=== PATIENT | female | born 1945 | race Caucasian/White ===

== ENCOUNTER 2016-09-21 14:47 | Emergency (ER) | payer MEDICARE ==
[2015-02-10 08:31] VITALS: BMI 35.0
[~2016-09-21 14:47] MED LIST: BAYER ASPIRIN325 MG; MOBIC7.5 MG PO; NORVASC5 MG PO; PLAVIX75 MG PO; PRAVACHOL40 MG PO; TENORMIN50 MG PO; TRIGLIDE160 MG PO; ZOLOFT100 MG PO
[2016-09-21 16:18] LABS: BASOPHILS 0.4 % (0-2); EOSINOPHILS 1.4 % (0-7); HEMATOCRIT 40.7 % (36.0-48.0); IMMATURE GRANULOCYTES 0.4 % (0-5); LYMPHOCYTES 28.2 % (15-50); MCH 31.9 pg (26.0-34.0); MCHC 34.4 g/dL (31.0-37.0); MCV 92.7 fL (80.0-100.0); MEAN PLATELET VOLUME 10.3 fL (7.4-10.4); NEUTROPHILS 59.6 % (40-80); PLATELET COUNT 187 10x3/uL (130-400); RBC 4.39 10x6/uL (4.00-5.40); RDW 13.1 % (11.5-14.5); WBC 7.9 10x3/uL (4.8-10.8)
[2016-09-21 16:33] LABS: ALKALINE PHOSPHATASE 73 U/L (46-116); ALT (SGPT) 67 U/L (10-68); BILIRUBIN - TOTAL 0.38 mg/dL (0.2-1.3); CALC OSMOLALITY 277 mosm/kg (275-300); CALCIUM 8.8 mg/dL (8.5-10.1); CARBON DIOXIDE 27.2 mmol/L (21.0-32.0); CHLORIDE - SERUM 101 mmol/L (98-107); GLUCOSE 125 mg/dL (74-106); POTASSIUM - SERUM 3.8 mmol/L (3.5-5.1); PROTEIN - SERUM 7.3 g/dL (6.4-8.2); SODIUM 137 mmol/L (136-145); UREA NITROGEN 21 mg/dL (7-18); eGFR NON AFRICAN AMERICAN 58 mL/min (90-120)
[2016-09-21 16:36] LABS: TROPONIN-I < 0.017 ng/mL (0.000-0.060)
== END 2016-09-21 18:21 | disposition home or self-care (01) ==
LOC: D.ER 14:47
PROVIDERS: Physician Assistant
DX: R06.02 Shortness of breath (principal); R53.83 Other fatigue; I25.10 Atherosclerotic heart disease of native coronary artery without angina pectoris; I10 Essential (primary) hypertension; J44.9 Chronic obstructive pulmonary disease, unspecified

== ENCOUNTER → 2016-10-07 08:06 | Outpatient (CLI) | payer MEDICARE ==
[~2016-10-07] VITALS: Ht 172.7 cm; Wt 100.0 kg
--- NOTE | ~2016-10-07 | OP ---
PATIENT NAME: MIK ASHTON MEDICAL RECORD: [id number] :[birth year] LOCATION:D.[facility] ADMISSION DATE: SURGEON: IVETH MCDUFFIE MD DATE OF OPERATION: 10/07/2016 PROCEDURES: 1. PTCA stent LAD. 2. Left heart catheterization. 3. Selective coronary angiography. 4. Left ventriculogram. INDICATION: Angina and coronary artery disease. PROCEDURE IN DETAIL: After informed consent was obtained and after detailed explanation of risks, benefits as well as alternative therapies, the patient elected to proceed with angiogram and angioplasty. The right radial area was prepped and draped in normal sterile fashion. The right radial artery was cannulated via modified Seldinger technique with placement of 6-Tanzanian sheath. All catheters exchanged through this sheath. FINDINGS: Left ventriculogram was performed in standard 30-degree VELASQUEZ view, reveals good cardiac wall motion throughout all segments. Overall ejection fraction is 60%. SELECTIVE CORONARY ANGIOGRAPHY: 1. Left main showed no significant angiographic disease. 2. Left anterior descending has previously placed stent. This is widely patent; however, there is a new 80% stenosis in the mid vessel. 3. The left circumflex shows mild irregularities, but no flow-limiting stenosis. 4. The right coronary has previously placed stents, these are widely patent with no significant restenosis. No disease elsewise throughout the RCA or its branches. PTCA STENT OF THE LAD: The stent used was a 2.5 x 11 mm BioFreedom stent. This was an 8-mm lesion and a 2.5 vessel, FRANK 3 flow before and after the intervention. The intervention resulted in 0% residual stenosis. OVERALL IMPRESSION: Successful percutaneous transluminal coronary angioplasty stent of the left anterior descending going from 80% initial stenosis to 0% residual. TRANSINT:[id number] Voice Confirmation ID: [id number] DOCUMENT ID: [id number] IVETH MCDUFFIE MD CC: [id number] DICTATION DATE: 10/07/16 1128 COMMISSIONING AGENT: 10/07/16 133[address] [place] [address]
--- NOTE | ~2016-10-07 | HEMODYNAMI ---
PATIENT:MIK ASHTON MEDICAL RECORD: [id number] : 49 LOCATION:[facility] ADMISSION DATE: 10/07/16 Generatedon:10/07/201611:27 Patient name: MIK ASHTON Patient #: [id number] SSN: : 1945 Date of study: 10/07/2016 Page: Of Hemodynamic Procedure Report Patient Data Patient Demographics Procedure consent was obtained First Name: MIK Gender: Female Last Name: POLI : 1945 [facility] Initial: ES Age: 70 year(s) Patient #: [id number] Race: Additional ID: [id number] Contact details Address: [address] [place] [address] State: [place] City: [place] Zip code: [address] Past Medical History Allergies: No known allergies Admission Admission Data Admission Date: 10/07/2016 Admission Time: 8:06 Admit Source: Other Height (in.): 67.72 BSA: 2.13 (m2) Height (cm.): 172 BMI: 34.04 (kg/m2) Weight (lbs.): 222 Weight (kg.): 100.7 Lab Results Lab Result Date: 10/07/2016 Lab Result Time: 0:00 Biochemistry Name Units Result Min Max BUN mg/dl 16 --(---*)-- 7 18 CK-MB ng/ml 0.9 --(*---)-- 0 3.6 Creatinine mg/dl 1.1 --(--*-)-- 0.6 1.3 Creatinine l 116 --(-*--)-- 21 215 Kinase CBC Name Units Result Min Max Hemoglobin g/dl 13.8 --(*---)-- 13.5 17.5 WBC 10^3/l 5.3 --(*---)-- 4.8 10.8 Procedure Procedure Types Cath Procedure Diagnostic Procedure [facility] w/Coronaries PCI Procedure Coronary Stent Initial Miscellaneous Procedures Moderate Sedation up to 15 minutes Procedure Description Procedure Date Procedure Date: 10/07/2016 Procedure Start Time: 11:05 Procedure End Time: 11:23 Procedure Staff Name Function Bong Greenwood MD Performing Physician Burak Mcghee RT Scrub John Rowland RN Nurse Giovanni Steiner RN Sales Support Rep Geeta Traore RT Monitor Procedure Data Cath Procedure Fluoroscopy Diagnostic fluoroscopy Total fluoroscopy Time: 5.3 time: 5.3 min min Diagnostic fluoroscopy Total fluoroscopy dose: 761 dose: 761 mGy mGy Contrast Material Contrast Material Type Amount (ml) Isovue 300 101 Entry Location Entry Primary Successful Side Size Upsize Upsize Entry Closure Fan ccessful Closure Location (Fr) 1 (Fr) 2 (Fr) Remarks Device Remarks Radial Right 6 Fr Mechanical TR band artery Short Compression Estimated blood loss: 10 ml Diagnostic catheters Device Type Used For End Catheter Placement Diagnostic Terumo 5Fr Procedure Jasper 110cm catheter Procedure Complications No complications Procedure Medications Medication Administration Route Dosage Oxygen NC 2 l/min Lidocaine 2% added to field 20 Heparin Flush Bag added to field 2 bags (1000units/500ml NS) 0.9% NaCl I.V. 100 ml/hr Versed I.V. 1 mg Fentanyl I.V. 50 mcg Versed I.V. 1 mg Fentanyl I.V. 50 mcg Radial Cocktail I.A. 1 syringe (Verapomil 2mg/Nitro 400mcg/Heparin 1500units) Versed I.V. 1 mg Fentanyl I.V. 50 mcg Heparin Bolus I.V. 4000 units Hemodynamics Rest BSA: 2.13 (m2) HGB: 13.8 (g/dl) O2 Consumption: Estimated: 191.91 (ml/min) O2 Co nsumption indexed: Estimated:90.1 (ml/min/m) Heart Rate: 63 (bpm) Snapshots Pre Cath Intra NCS Post Cath Vital Signs Time Heart Resp SPO2 etCO2 [id number] NIBP (mmHg) Rhythm Pain Sedation Rate (ipm) (%) (mmHg) (mmHg) Status Level (bpm) 10:45:42 61 16 98 0 0 No Cuff NSR 0 (11) 10(A) , No pain 10:47:29 62 15 97 0 0 132/71(105) NSR 0 (11) 10(A) , No pain 10:56:52 61 17 96 0 0 119/67(97) NSR 0 (11) 10(A) , No pain 11:01:08 60 16 96 0 0 122/66(100) NSR 0 (11) 10(A) , No pain 11:05:24 60 15 96 0 0 115/67(85) NSR 0 (11) 9(A) , No pain 11:09:38 61 16 95 0 0 98/49(69) NSR 0 (11) 9(A) , No pain 11:13:50 60 17 95 0 0 98/52(86) NSR 0 (11) 9(A) , No pain 11:18:02 62 16 96 0 0 97/54(75) NSR 0 (11) 9(A) , No pain 11:22:12 61 16 95 0 0 104/57(81) NSR 0 (11) 10(A) , No pain 11:26:26 61 16 95 0 0 110/56(92) NSR 0 (11) 10(A) , No pain Medications Time Medication Route Dose Verified Delivered Reason Note s Effectiveness by by 10:45:21 Oxygen NC 2 l/min Bong Buffie used for Timo Rowland RN procedure 10:45:30 Lidocaine 2% added 20ml Bong Bong for local to vial Timo Greenwood MD anesthetic field 10:45:37 Heparin Flush added 2 bags Bong Woody used for Bag to Timo Greenwood MD procedure (1000units/500ml field NS) 10:45:47 0.9% NaCl I.V. 100 Bongloc Saldanaie Per physician ml/hr Timo Rowland RN 11:00:33 Versed I.V. 1 mg Bong Buffie for sedation Timo Rowland RN 11:00:38 Fentanyl I.V. 50 mcg Bong Buffie for sedation Timo Rowland RN 11:06:00 Versed I.V. 1 mg Bong Buffie for sedation Timo Rowland RN 11:06:04 Fentanyl I.V. 50 mcg Bong Buffie for sedation Timo Rowland RN 11:06:13 Radial Cocktail I.A. 1 Bong Bong for (Verapomil syringe Timo Greenwood MD vasodilation 2mg/Nitro 400mcg/Heparin 1500units) 11:10:31 Versed I.V. 1 mg Bong Buffie for sedation Timo Rowland RN 11:10:34 Fentanyl I.V. 50 mcg Bong Lopez for sedation Timo Rowland RN 11:12:56 Heparin Bolus I.V. 4000 Bong Lopez for veri fied units Timo Rowland RN anticoagulation with dr greenwood Procedure Log Time Note 10:29:38 Patient Height : 67.72 cm 10:29:42 Patient Weight : 222 kg 10:30:01 Diagnostic Cath Status : Elective 10:30:39 Admit Source: Other 10:30:42 Giovanni Steiner RN sent for patient. Start room use. 10:30:44 Time tracking: Regular hours 10:30:49 Plan of Care:Hemodynamics will remain stable., Cardiac rhythm will remain stable., Comfort level will be maintained., Respiratory function will remain adequate., Patient/ family verbilizes understanding of procedure., Procedure tolerated without complication., Recovers from procedure without complications.. 10:32:25 Patient received from Outpatients to [facility] 1 Alert and oriented. Tansferred to table in Supine position. 10:32:29 Warm blankets applied, and danis hugger turned on for patient comfort. 10:32:30 Correct patient and procedure confirmed by team. 10:32:32 Signed procedure consent form obtained from patient. 10:32:49 H&P Date Dictated: 09/11/2016 Within 30 days and on chart., H&P Addendum completed by physician on day of procedure. (MUST COMPLETE FOR ALL OUTPATIENTS). 10:32:52 Pre-procedure instructions explained to patient. 10:32:58 Pre-op teaching completed and patient verbalized understanding. 10:33:00 Family in waiting room. 10:33:02 Patient NPO since Midnight. 10:33:11 Is patient on blood thinner?Yes 10:33:17 ACC The patient was administered the following blood thiners within the last 24 hours: ACCPlavix 10:33:26 Snore? Yes 10:33:28 Sleep apnea? No 10:33:34 Airway obstruction? Yes COPD 10:33:40 Dentures? No ? 10:33:45 Patient pain scale 0/10 ?. 10:33:59 IV patent on arrival in right forearm with 0.9% NaCl at O. 10:34:07 Lab results completed and on chart. 10:34:13 Right Radial & Right Groin area was prepped with chlora-prep and draped in sterile fashion 10:34:15 Alarms reviewed by R. N. 10:34:16 Sharps counted by scrub and verified by R.N. 10:44:44 Physician paged 10:44:50 ECG and BP/O2 sat monitors applied to patient. 10:44:51 Vital chart was started 10:44:52 Baseline sample Acquired. 10:44:57 Full Disclosure recording started 10:45:00 Baseline sample Acquired. 10:45:21 Oxygen 2 l/min NC was administered by John Rowland RN; used for procedure; 10:45:30 Lidocaine 2% 20ml vial added to field was administered by Bong Greenwood MD; for local anesthetic; 10:45:37 Heparin Flush Bag (1000units/500ml NS) 2 bags added to field was administered by Bong Greenwood MD; used for procedure; 10:45:47 0.9% NaCl 100 ml/hr I.V. was administered by John Rowland RN; Per physician; 10:46:17 Vital chart was stopped 10:55:46 Vital chart was started 11:00:17 Physician arrived 11:00:18 --------ALL STOP TIME OUT------ 11:00:19 Final Timeout: patient, procedure, and site verified with staff and physician. All members of the team are in agreement. 11:00:21 Right Radial & Right Groin site verified by team. 11:00:26 Sedation plan: IV Moderate Sedation Versed, Fentanyl 11:00:32 Physical assessment completed. ASA score P 2 - A patient with mild systemic disease as per Bong Greenwood MD. 11:00:33 Versed 1 mg I.V. was administered by John Rowland RN; for sedation; 11:00:38 Fentanyl 50 mcg I.V. was administered by John Rowland RN; for sedation; 11:00:38 Use device set Radial Dx 11:00:39 Acist Syringe opened to sterile field. 11:00:40 Medline Cath Pack opened to sterile field. 11:00:40 Bag Decanter opened to sterile field. 11:00:40 Terumo 6Fr Slender Glidesheath opened to sterile field. 11:00:41 St Prasanth 260cm J .035 wire opened to sterile field. 11:00:41 Acist Hand Control opened to sterile field. 11:00:42 Acist Manifold opened to sterile field. 11:00:42 Tegaderm 4 x 4 opened to sterile field. 11:00:43 MBrace Wrist Support opened to sterile field. 11:00:52 Zero performed for pressure channel P1 11:04:27 Procedure started. 11:05:12 Local anesthetic to right radial artery with Lidocaine 2% by Bong Greenwood MD.INITIAL ACCESS ONLY 11:05:25 A 6 Fr Short sheath was inserted into the Right Radial artery 11:06:00 Versed 1 mg I.V. was administered by John Rowland RN; for sedation; 11:06:04 Fentanyl 50 mcg I.V. was administered by John Rowland RN; for sedation; 11:06:13 Radial Cocktail (Verapomil 2mg/Nitro 400mcg/Heparin 1500units) 1 syringe I.A. was administered by Bong Greenwood MD; for vasodilation; 11:06:38 A Diagnostic [employer] 5Fr Jasper 110cm catheter was advanced over the wire and used for Procedure. 11:06:47 LV angiography performed. 11:09:48 RCA angiography performed. 11:09:51 Catheter removed. 11:10:31 Versed 1 mg I.V. was administered by John Rowland RN; for sedation; 11:10:34 Fentanyl 50 mcg I.V. was administered by John Rowland RN; for sedation; 11:10:40 Cordis 6FR XBLAD 3.5 guide catheter opened to sterile field. 11:11:11 LCA angiography performed. 11:12:20 [employer] BasixCompak Inflation Kit opened to sterile field. 11:12:20 Ramey Whisper J 300cm 0.014 guide wire opened to sterile field. 11:12:56 Heparin Bolus 4000 units I.V. was administered by John Rowland RN; for anticoagulation; verified with dr greenwood 11:13:09 6 Fr xblad3.53 guide catheter was inserted over the wire 11:13:11 Wire advanced across lesion. 11:15:19 Inflation Number: 1 A Biofreedom 2.5 x 11 stent (No Cost Implant) was prepped and advanced across the Mid LAD. The stent was deployed at 13 ALAINA for 0:10 (min:sec). 11:15:36 Inflation number: 2 The stent balloon was then re-inflated across the Mid LAD to 19 ALAINA for 0:10 (min:sec). 11:17:21 Terumo TR Band Standard opened to sterile field. 11:17:52 Inflation number: 3 A Euphora 2.5 x 12 Balloon was prepped and advanced across the Mid LAD, then inflated to 13 ALAINA for 0:10 (min:sec). 11:20:23 Wire removed. 11:20:24 Guide catheter removed. 11:20:48 Sheath removed intact; hemostasis achieved with Mechanical Compression to the Right Radial artery. 11:20:51 Procedure ended.(Physican Out) 11::34 Fluoroscopy time 05.30 minutes. 11::40 Fluoroscopy dose: 761 mGy 11::40 Flurop Dose total: 761 11::44 Contrast amount:Isovue 300 101ml. 11:21:47 Sharps counted by scrub and verified by R.N. 11:21:56 TR band inflated with 10cc of air. 11:22:01 Insertion/operative site no bleeding no hematoma. 11:22:11 Post Procedure Pulses reassessed and unchanged 11:22:21 Post-procedure physical assessment completed. ASA score P 2 - A patient with mild systemic disease as per Bong Greenwood MD. 11:22:26 Post procedure rhythm: unchanged. 11:22:30 Estimated blood loss: 10 ml 11:22:32 Post procedure instruction explained to patient.Patient verbalizes understanding. 11::47 Procedure and supply charges have been captured, reviewed, submitted and are correct. 11:23:16 Procedure Complication : No complications 11:23:26 See physician's report for complete and final results. 11::44 Report given to Pre/Post Procedure Room. 11:23:48 Patient transfered to Pre/Post Procedure Room with Stretcher. 11::52 Procedure ended. 11::52 Full Disclosure recording stopped 11::55 End room use (Document Last) 11:24:14 ACC-PCI Only Patient was given prescriptions, or instructed by Bong Greenwood MD to start/continue the following medications upon discharge: Plavix 11::47 Lab Result : Creatinine 1.1 mg/dl 11::47 Lab Result : BUN 16 mg/dl 11:26:47 Lab Result : CK-MB 0.9 ng/ml 11:26:47 Lab Result : Creatinine Kinase 116 l 11:26:47 Lab Result : Hemoglobin 13.8 g/dl 11:26:47 Lab Result : WBC 5.3 10^3/l 11:27:50 Vital chart was stopped Intervention Summary Intervention Notes Time ActionType Lesion and Equipment Action# Pressure Duration Attributes Used 11:15:19 Place stent Mid LAD Biofreedom 1 13 00:10 2.5 x 11 stent (No Cost Implant) 11:15:36 Reinflate Mid LAD Biofreedom 2 19 00:10 stent 2.5 x 11 balloon stent (No Cost Implant) 11:17:52 Inflate Mid LAD Euphora 3 13 00:10 balloon 2.5 x 12 Balloon Device Usage Item Name Manufacture Quantity Catalog Hospital Part Current Minimal Lot# / Number Charge Number Stock Stock Serial# Code Acist Acist 1 00171 616134 397843 828187 20 Syringe Medical Systems Inc Medline Cardinal 1 [id number] 713209 97631 518586 5 Cath Pack Health Bag Microtek 1 2002S 053003 31854 514689 5 Decanter Medical Inc. Terumo 6Fr Terumo 1 [id number] 178557 157768 340728 [address] Pr[address] St Prasanth 1 151988 332665 675059 436337 30 260cm J .035 wire Acist Hand Acist 1 60605 204571 687959 848031 5 Control Medical Systems Inc Acist Acist 1 82568 103319 223685 722782 5 Manifold Medical Systems Inc Tegaderm 4 3M 1 1626W 927014 731793 143985 5 x 4 MBrace Advanced 1 140-0250-00 940060 78976 807656 5 Wrist Vascular Support Dynamics Diagnostic Terumo 1 40-6615 130635 119309 982339 5 Terumo 5Fr Jasper 110cm catheter Cordis 6FR Cardinal 1 [id number] 890563 167411 808506 10 XBLAD 3.5 Health guide catheter Merit Merit 1 [id number] 935584 711230 613888 15 BasixCompak Medical Inflation Kit Ramey Ramey 1 [id number] 525359 485832 068067 5 Whisper J Vascular 300cm 0.014 guide wire Biofreedom Biosensors 1 [id number] 702624 135510 5 [id number] 2.5 x 11 [employer] SA stent (No Cost Implant) Terumo TR Terumo 1 [id number] 662477 743181 870565 40 Band Standard Euphora 2.5 Medtronic 1 [id number] 897018 197634 065524 5 [id number] x 12 Balloon Signature Audit [place] Stage Time Signature Unsigned Intra-Procedure 10/07/2016 Geeta Traore 11:27:47 AM RT(R) Signatures Monitor : Geeta Traore Signature : RT Date : Time : [place] [id number] [facility] [place] [address]
[~2016-10-07 08:06] MED LIST changes: +ACIDOPHILUS LAC1 CAP PO; +ADVAIR 250/501 DISK INH; +CALCIUM 500 +1 EAC3 PO; +CO Q-1030 MG PO; +FISH OIL 1,0001 CA1 PO; +GAVISCON E1 TAB.CHEW PO; +MULTIPLE VITAMI1 TA1 PO; +OMEPRAZOLE20 M1 PO; +POTASSIUM99 M1 PO; +ULTRAM50 MG PO
[2016-10-07 08:36] VITALS: BP 139/73; Ht 172.7 cm; Wt 100.0 kg
[2016-10-07 08:49] LABS: BASOPHILS 0.6 % (0-2); EOSINOPHILS 2.4 % (0-7); HEMATOCRIT 40.6 % (36.0-48.0); HEMOGLOBIN 13.8 g/dL (12-16); IMMATURE GRANULOCYTES 0.4 % (0-5); LYMPHOCYTES 28.8 % (15-50); MCH 31.7 pg (26.0-34.0); MCV 93.1 fL (80.0-100.0); MEAN PLATELET VOLUME 10.5 fL (7.4-10.4); MONOCYTES 13.9 % (2-11); NEUTROPHILS 53.9 % (40-80); PLATELET COUNT 190 10x3/uL (130-400); RBC 4.36 10x6/uL (4.00-5.40); RDW 13.6 % (11.5-14.5); WBC 5.3 10x3/uL (4.8-10.8)
[2016-10-07 09:13] LABS: CALC OSMOLALITY 273 mosm/kg (275-300); CALCIUM 8.8 mg/dL (8.5-10.1); CARBON DIOXIDE 24.2 mmol/L (21.0-32.0); CHLORIDE - SERUM 103 mmol/L (98-107); CKMB 0.9 U/L (0.0-3.6); CREATINE KINASE 116 UL (21-215); CREATININE - SERUM 1.1 mg/dL (0.6-1.3); GLUCOSE 114 mg/dL (74-106); POTASSIUM - SERUM 4.5 mmol/L (3.5-5.1); SODIUM 136 mmol/L (136-145); UREA NITROGEN 16 mg/dL (7-18); eGFR NON AFRICAN AMERICAN 52 mL/min (90-120)
[2016-10-07 09:15] LABS: TROPONIN-I < 0.017 ng/mL (0.000-0.060)
--- NOTE | 2016-10-07 11:30 | NUR ---
1130 RECIEVED TO ROOM VIA STRETCHER FROM ACID DIPPER WITH REPORTS OF ONE STENT TO THE LAD. TR BAND TO R/WRIST CDI NO BLEEDING NO HEMATOMA NOTED. CHEST PAIN IS DENIED. HR 61 BP 109/54 INSTRUCTED PATIENT TO KEEP RUE STRAIGHT NO BENDING OR FLEXING OF WRIST
--- NOTE | 2016-10-07 11:52 | NUR ---
VSS WITH CHEST PAIN DENIED TR BAND TO R/WRIST CDI NO BLEEDING NO HEMATOMA NOTED.
--- NOTE | 2016-10-07 12:33 | NUR ---
RESTING QUIETLY WITH CHEST PAIN DENIED TR BAND REMAINS TO R/WRIST CDI NO BLEEDING NO HEMATOMA NOTED. VSS WITH FAMILY AT SIDE
--- NOTE | 2016-10-07 13:00 | NUR ---
SITTING WITH HOB UP 45 DEGREES WATCHING TV CHEST PAIN IS DENIED.TR BAND REMAINS TO R/WRIST CDI NO BLEEDING NO HEMATOMA NOTED. WILL MONITOR
--- NOTE | 2016-10-07 13:23 | NUR ---
WATCHING TV IN ROOM WITH VSS CHEST PAIN IS DENIED. TR BAND REMAINS CDI NO BLEEDING NO HEMATOMA NOTED
--- NOTE | 2016-10-07 14:02 | NUR ---
NO CHANGE IN ASSESSMENT CONTINUES TO WATCH TV
--- NOTE | 2016-10-07 14:19 | NUR ---
2 CC AIR REMOVED FROM TR BAND WITH NO BLEEDING NO HEMATOMA NOTED
--- NOTE | 2016-10-07 15:17 | NUR ---
2 CC AIR REMOVED FROM TR BAND WITH NO BLEEDING NOTED. EKG COMPLETE AND TO CHART. PIV REMOVED WITH DRESSING APPLIED. PATIENT UP TO GET DRESSED FOR DISCHARGE HOME
--- NOTE | 2016-10-07 15:25 | NUR ---
VERBAL AND WRITTEN DISCHARGE GONE OVER WITH PATIENT AND SPOUSE. TR BAND REMOVED WITH DRESSING APPLIED. CHEST PAIN IS DENIED. PATIENT TRANSPORTED VIA TO PARKING FOR DISCHARGE HOME
== END | disposition home or self-care (01) ==
LOC: D.CATH 08:06
PROVIDERS: Internal Medicine Interventional Cardiology
DX: I25.119 Atherosclerotic heart disease of native coronary artery with unspecified angina pectoris (principal); R06.00 Dyspnea, unspecified; I10 Essential (primary) hypertension; J44.9 Chronic obstructive pulmonary disease, unspecified; R94.30 Abnormal result of cardiovascular function study, unspecified; Z00.6 Encounter for examination for normal comparison and control in clinical research program; Z01.812 Encounter for preprocedural laboratory examination
CPT/HCPCS: 93458; C9600

== ENCOUNTER → 2016-11-05 07:51 | Outpatient (CLI) | payer MEDICARE ==
[2016-10-07 08:36] VITALS: BMI 33.5
--- NOTE | ~2016-11-05 | EMG ---
PATIENT:MIK ASHTON DATE OF SERVICE: 11/05/16 MEDICAL RECORD: [id number] DATE OF : 49 LOCATION: [facility] ADMISSION DATE: REFERRING PHYSICIAN: ARMAND VERDUZCO MD INTERPRETING PHYSICIAN: ARMAND VERDUZCO MD DATE OF SERVICE: 11/05/2016 REFERRED BY: Dr. Moura as an outpatient. ELECTROMYOGRAPHIC DATA: Electromyographic examination is limited to both lower extremities and is limited to the nerve conduction studies only, the patient has just recently undergoing cardiac stenting and is currently on Plavix. In the right lower extremity, right peroneal motor stimulation elicits a compound motor action potential with a distal latency of 4.2 milliseconds, peak amplitude of 2 millivolts and calculated conduction velocity of 46 meters per second. Right tibial motor stimulation elicits a compound motor action potential with a distal latency of 5.0 milliseconds, peak amplitude of 5 millivolts, and calculated conduction velocity of 44 meters per second. Antidromic right sural sensory stimulation elicits no reliable response. The right lower extremity H reflex recording at gastrocsoleus has a latency of 38 milliseconds. In the left lower extremity, left peroneal motor stimulation elicits a compound motor action potential with a distal latency of 3.5 milliseconds, peak amplitude of 4 millivolts, and calculated conduction velocity of 41 meters per second. Left tibial motor stimulation elicits a compound motor action potential with a distal latency of 5.3 milliseconds, peak amplitude of 8 millivolts, and calculated conduction velocity of 40 meters per second. Antidromic left sural sensory stimulation elicits no reliable response. The left lower extremity H reflex recording at gastrocsoleus is absent. Needle electrode examination is not performed at this time. INTERPRETATION: Electromyographic examination of both lower extremities, limited to the nerve conduction studies only, is indicative of a diffuse disorder of the lower motor neuron in both lower extremities, moderate in degree electrically, consistent with the diagnosis of a sensory motor peripheral polyneuropathy. TRANSINT:[id number] Voice Confirmation ID: [id number] DOCUMENT ID: [id number] ARMAND VERDUZCO MD CC: [id number] DICTATION DATE: 11/05/1652 EXPERIMENTAL TECHNICIAN: 11/05/1658 [facility] [address] [place] [address]
== END | disposition home or self-care (01) ==
LOC: D.CN 07:51
DX: G60.9 Hereditary and idiopathic neuropathy, unspecified (principal)

== ENCOUNTER → 2018-04-23 10:01 | Outpatient (CLI) | payer OTHER ==
[2016-10-07 08:36] VITALS: BMI 33.5
--- NOTE | 2018-04-28 11:18 | ST ---
PATIENT:MIK ASHTON MEDICAL RECORD: [id number] SEX: F LOCATION:[facility] ORDER #: ADMISSION DATE: 04/23/18 AGE OF PATIENT: 72 REFERRING PHYSICIAN: INTERPRETING PHYSICIAN: IVETH MCDUFFIE MD DATE OF SERVICE: 04/23/2018 PROCEDURE: Nuclear stress test. INDICATION: Chest pain, shortness of breath. The patient was exercised on standard Lexiscan protocol with 32 mCi of sestamibi injected at peak stress, 11 mCi used previously for rest images. FINDINGS: Gated SPECT reveals preserved ejection fraction at 60% with decreased wall motion thickening and brightening throughout the inferior segments. SPECT imaging Cardiolite was used as myocardial perfusion agent. 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 OVERALL IMPRESSION: This is a markedly abnormal nuclear stress test, fixed perfusion defect inferiorly, reversible ischemia anterior and lateral suggestive of multivessel coronary artery disease with preserved ejection fraction. We will proceed with coronary angiography as followup study. TRANSINT:[id number] Voice Confirmation ID: [id number] DOCUMENT ID: [id number] IVETH MCDUFFIE MD at 1118 CC: [id number] DICTATION DATE: 04/24/18 1420 ELEVATOR ERECTOR: 04/24/18 2350 DEP CLI 04/23/18 [place] [id number] [place] [address]
== END | disposition home or self-care (01) ==
LOC: D.HCCARDIO 04-20 10:00
DX: I25.119 Atherosclerotic heart disease of native coronary artery with unspecified angina pectoris (principal)

== ENCOUNTER 2018-05-04 07:55 | Outpatient (CLI) | payer OTHER ==
[~2018-05-04] VITALS: Ht 172.7 cm; Wt 96.8 kg
--- NOTE | ~2018-05-04 | OP ---
PATIENT NAME: MIK ASHTON MEDICAL RECORD: [id number] :[birth year] LOCATION:D.CAT ADMISSION DATE: SURGEON: IVETH MCDUFFIE MD DATE OF OPERATION: 05/04/2018 PROCEDURES: 1. PTCA stent left main. 2. PTCA stent LAD. 3. Intravascular ultrasound to left main. 4. Intravascular ultrasound to the LAD. 5. Left heart catheterization. 6. Selective coronary angiography. 7. Left ventriculogram. INDICATION: Angina and coronary artery disease. PROCEDURE IN DETAIL: After informed consent was obtained and after a detailed description of the risks, benefits as well as alternative therapies, the patient elected to proceed with angiogram and angioplasty. The right radial area was prepped and draped in normal sterile fashion. Right radial artery was cannulated via modified Seldinger technique with placement of 6-Divehi sheath. All catheters exchanged through this sheath. FINDINGS: The left ventriculogram was performed in standard 30-degree VELASQUEZ view, reveals good cardiac wall motion throughout all segments. Overall ejection fraction estimated 60%. SELECTIVE CORONARY ANGIOGRAPHY: 1. Left main has a greater than 80% stenosis confirmed by intravascular ultrasound. 2. Left anterior descending has greater than 80% stenosis in mid vessel confirmed by intravascular ultrasound. 3. Left circumflex has moderate irregularities, but no flow-limiting stenosis. 4. The right coronary artery has previously placed stents. These are widely patent with no significant restenosis. No disease elsewise throughout the RCA or its branches. PTCA STENT OF LEFT MAIN AND LAD: The LAD was addressed with a 2.5 x 15 mm [place], the left main with a 3.5 x 12 mm Andrez. Result was 0% residual stenosis. OVERALL IMPRESSION: Successful PTCA stent of the LAD and left main, both going from greater than 80% initial stenosis to 0% residual. TRANSINT:[id number] Voice Confirmation ID: [id number] DOCUMENT ID: [id number] IVETH MCDUFFIE MD CC: [id number] DICTATION DATE: 05/04/18 1019 WASHHOUSE HAND: 05/04/18 1206 REG [facility] [address] [place] [address]
--- NOTE | ~2018-05-04 | HEMODYNAMI ---
PATIENT:MIK ASHTON MEDICAL RECORD: [id number] : 49 LOCATION:[facility] ADMISSION DATE: 05/04/18 Generatedon:05/04/201810:20 Patient name: MIK ASHTON Patient #: [id number] SSN: : 1945 Date of study: 05/04/2018 Page: Of Hemodynamic Procedure Report Patient Data Patient Demographics Procedure consent was obtained First Name: MIK Gender: Female Last Name: POLI : 1945 [facility] Initial: ES Age: 72 year(s) Patient #: [id number] Race: Additional ID: [id number] Contact details Address: [address] [place] [address] State: [place] City: [place] Zip code: [address] Past Medical History Allergies Allergen Reaction Date Comments Reported Other allergy 05/04/2018 CODEINE, HYDROCODONE Admission Admission Data Admission Date: 05/04/2018 Admission Time: 7:55 Height (in.): 68 BSA: 2.11 (m2) Height (cm.): 172.72 BMI: 32.69 (kg/m2) Weight (lbs.): 215 Weight (kg.): 97.52 Lab Results Lab Result Date: 05/04/2018 Lab Result Time: 0:00 Biochemistry Name Units Result Min Max BUN mg/dl 17 --(---*)-- 7 18 Creatinine mg/dl 1.1 --(--*-)-- 0.6 1.3 CBC Name Units Result Min Max Hematocrit % 41.3 -*(----)-- 42 54 Hemoglobin g/dl 14.3 --(*---)-- 13.5 17.5 Procedure Procedure Types Cath Procedure Diagnostic Procedure [facility] w/Coronaries FFR/IVUS Intra-Coronary IVUS Initial Intra-Coronary IVUS Additional Sedation Charges Moderate Sedation up to 15 minutes PCI Procedure Coronary Stent Coronary Stent Initial x2 Procedure Description Procedure Date Procedure Date: 05/04/2018 Procedure Start Time: 10:00 Procedure End Time: 10:19 Procedure Staff Name Function Bong Greenwood MD Performing Physician Kathi Chapa RT Monitor Burak Mcghee RT Scrub John Rowland RN Nurse Procedure Data Cath Procedure Fluoroscopy Diagnostic fluoroscopy Total fluoroscopy Time: 4.9 time: 4.9 min min Diagnostic fluoroscopy Total fluoroscopy dose: 767 dose: 767 mGy mGy Contrast Material Contrast Material Type Amount (ml) Isovue 300 89 Entry Location Entry Primary Successful Side Size Upsize Upsize Entry Closure Fan ccessful Closure Location (Fr) 1 (Fr) 2 (Fr) Remarks Device Remarks Radial Right 6 Fr Mechanical artery Short Compression Estimated blood loss: 10 ml Diagnostic catheters Device Type Used For End Catheter Placement DIAGNOSTIC Lizella 110cm 5 Procedure Fr catheter ([id number]) Procedure Complications No complications Procedure Medications Medication Administration Route Dosage Oxygen etCO2 Nasal cannula 2 l/min Lidocaine 2% added to field 20 Heparin Flush Bag added to field 2 bags (1000units/500ml NS) 0.9% NaCl I.V. 100 ml/hr Radial Cocktail I.A. 1 syringe (Verapomil 2mg/Nitro 400mcg/Heparin 1500units) Versed I.V. 1 mg Fentanyl I.V. 50 mcg Versed I.V. 1 mg Fentanyl I.V. 50 mcg Heparin Bolus I.V. 4000 units Hemodynamics Rest BSA: 2.11 (m2) HGB: 14.3 (g/dl) O2 Consumption: Estimated: 187.83 (ml/min) O2 Co nsumption indexed: Estimated:89.02 (ml/min/m) Heart Rate: 62 (bpm) Snapshots Pre Cath Intra NCS Post Cath Vital Signs Time Heart Resp SPO2 etCO2 NIBP (mmHg) Rhythm Pain Sedation Rate (ipm) (%) (mmHg) Status Level (bpm) 9:53:42 60 11 100 31.1 138/71(115) NSR 0 (11) 10(A) , No pain 9:58:00 58 11 95 33.4 125/63(109) NSR 0 (11) 10(A) , No pain 10:02:17 56 12 96 34.1 126/61(97) NSR 0 (11) 9(A) , No pain 10:06:28 58 11 94 30.3 106/52(75) NSR 0 (11) 9(A) , No pain 10:10:40 57 11 94 31.9 99/49(78) NSR 0 (11) 9(A) , No pain 10:14:54 56 11 96 31.9 98/46(70) NSR 0 (11) 9(A) , No pain 10:17:46 58 11 97 37.2 101/52(71) NSR 0 (11) 10(A) , No pain Medications Time Medication Route Dose Verified Delivered Reason Not es Effectiveness by by 9:53:52 Oxygen etCO2 2 l/min Bongloc Saldanaie used for Nasal Timo Rowland RN procedure cannula 9:53:58 Lidocaine 2% added 20ml Bongloc Woody for local to vial Timo Greenwood MD anesthetic field 9:54:04 Heparin Flush added 2 bags Bong Woody used for Bag to Timo Greenwood MD procedure (1000units/500ml field NS) 9:54:13 0.9% NaCl I.V. 100 Bong Lopez Per physician ml/hr Timo Rowland RN 10:00:01 Versed I.V. 1 mg Bong Lopez for sedation Timo Rowland RN 10:00:07 Fentanyl I.V. 50 mcg Bong Lopez for sedation Timo Rowland RN 10:02:30 Radial Cocktail I.A. 1 Bong Wodoy for (Verapomil syringe Timo Greenwood MD vasodilation 2mg/Nitro 400mcg/Heparin 1500units) 10:02:37 Versed I.V. 1 mg Bong Lopez for sedation Timo Rowland RN 10:02:41 Fentanyl I.V. 50 mcg Bong Lopez for sedation Timo Rowland RN 10:08:51 Heparin Bolus I.V. 4000 Bong Lopez for dennis ified units Timo Rowland RN anticoagulation with dr greenwood Procedure Log Time Note 9:37:09 Kathi Chapa RT(R) sent for patient. Start room use. 9:37:10 Diagnostic Cath status Elective 9:37:10 Time tracking: Regular hours (M-F 7:00 - 5:00) 9:37:13 Plan of Care:Hemodynamics will remain stable., Cardiac rhythm will remain stable., Comfort level will be maintained., Respiratory function will remain adequate., Patient/ family verbilizes understanding of procedure., Procedure tolerated without complication., Recovers from procedure without complications.. 9:37:15 Signed procedure consent form obtained from patient. 9:37:23 H&P Date Dictated: 04/07/2018 Within 30 days and on chart., H&P Addendum completed by physician on day of procedure. (MUST COMPLETE FOR ALL OUTPATIENTS). 9:39:36 Patient allergic to Other allergyCODEINE, HYDROCODONE 9:40:03 Lab Result : BUN 17 mg/dl 9:40:03 Lab Result : Creatinine 1.1 mg/dl 9:40:03 Lab Result : Hematocrit 41.3 % 9:40:03 Lab Result : Hemoglobin 14.3 g/dl 9:40:20 Patient Height : 68 inches 9:40:24 Patient Weight : 215 lbs 9:42:05 Patient received from Pre/Post Procedure Room to CCL 1 Alert and oriented. Tansferred to table in Supine position. 9:42:06 Warm blankets applied, and danis hugger turned on for patient comfort. 9:42:06 Correct patient and procedure confirmed by team. 9:42:07 ECG and BP/O2 sat monitors applied to patient. 9:52:23 Rhythm: sinus bradycardia 9:52:24 Baseline sample Acquired. 9:52:27 Vital chart was started 9:52:28 Full Disclosure recording started 9:52:29 Pre-procedure instructions explained to patient. 9:52:29 Pre-op teaching completed and patient verbalized understanding. 9:52:30 Family in patients room. 9:52:32 Patient NPO since Midnight. 9:52:33 Is patient on blood thinner?Yes 9:52:42 PRE LOADED ON PLAVIX 9:52:44 Patient diabetic? No. 9:52:47 Patient not . Patient is over age 55. 9:52:54 Previous problem with sedation/anesthesia? No ? 9:52:58 Snore? Yes 9:52:59 Sleep apnea? No 9:53:01 Deviated septum? No 9:53:01 Opens mouth fully? Yes 9:53:02 Sticks out tongue? Yes 9:53:04 Airway obstruction? Yes COPD 9:53:08 Dentures? No ? 9:53:09 Modified Kj's test Ulnar < 7 seconds 9:53:16 Patient pain scale 0/10 ?. 9:53:20 IV patent on arrival in left antecubital with 0.9% NaCl at O. 9:53:22 Lab results completed and on chart. 9:53:24 Right Radial & Right Groin area was prepped with chlora-prep and draped in sterile fashion 9:53:25 Alarms reviewed by R. N. 9:53:26 Sharps counted by scrub and verified by R.N. 9:53:28 Use device set Radial Dx or PCI 9:53:29 ACIST Syringe (46913) opened to sterile field. 9:53:30 Bag Decanter (2002S) opened to sterile field. 9:53:31 ACIST Hand Control (42911) opened to sterile field. 9:53:31 ACIST Manifold (07929) opened to sterile field. 9:53:31 Tegaderm 4 x 4 (1626W) opened to sterile field. 9:53:33 Medline Cath Pack ([id number]) opened to sterile field. 9:53:34 DIAGNOSTIC WIRE .035 260cm J wire (601380) opened to sterile field. 9:53:34 MBrace Wrist Support (006523488) opened to sterile field. 9:53:35 SHEATH 6FR Slender (18-5397) opened to sterile field. 9:53:52 Oxygen 2 l/min etCO2 Nasal cannula was administered by John Rowland RN; used for procedure; 9:53:58 Lidocaine 2% 20ml vial added to field was administered by Bong Greenwood MD; for local anesthetic; 9:54:04 Heparin Flush Bag (1000units/500ml NS) 2 bags added to field was administered by Bong Greenwood MD; used for procedure; 9:54:13 0.9% NaCl 100 ml/hr I.V. was administered by John Rowland RN; Per physician; 9:59:18 --------ALL STOP TIME OUT------ 9:59:20 Final Timeout: patient, procedure, and site verified with staff and physician. All members of the team are in agreement. 9:59:21 Right Radial & Right Groin site verified by team. 9:59:25 Fire Safety Assessment: A--An alcohol-based skin anteseptic being used preoperatively., C--Open oxygen or nitrous oxide is being used., D--An ESU, laser, or fiber-optic light is being used. 9:59:27 Physical assessment completed. ASA score P 2 - A patient with mild systemic disease as per Bong Greenwood MD. 9:59:30 Sedation plan: IV Moderate Sedation Medication:Versed, Fentanyl 9:59:32 Zero performed for pressure channel P1 10:00:01 Versed 1 mg I.V. was administered by John Rowland RN; for sedation; 10:00:07 Fentanyl 50 mcg I.V. was administered by Jhon Rowland RN; for sedation; 10:00:43 Procedure started. 10:00:48 Local anesthetic to right radial artery with Lidocaine 2% by Bong Greenwood MD.INITIAL ACCESS ONLY 10:01:28 Zero performed for pressure channel P1 10:02:03 A 6 Fr Short sheath was inserted into the Right Radial artery 10:02:09 A DIAGNOSTIC Lizella 110cm 5 Fr catheter (734326) was advanced over the wire and used for Procedure. 10:02:30 Radial Cocktail (Verapomil 2mg/Nitro 400mcg/Heparin 1500units) 1 syringe I.A. was administered by Bong Greenwood MD; for vasodilation; 10:02:37 Versed 1 mg I.V. was administered by John Rowland RN; for sedation; 10:02:41 Fentanyl 50 mcg I.V. was administered by John Rowland RN; for sedation; 10:03:00 Baseline sample Acquired. 10:03:14 LV gram done using VELASQUEZ 10:03:16 Injector settings: Ml/sec: 51, Volume: 5, 10:03:38 EF : 55 % 10:04:25 RCA angiography performed. 10:04:49 Catheter exchanged over wire. 10:05:19 GUIDE 6FR XBLAD 3.5 catheter ([id number]) opened to sterile field. 10:06:35 6 Fr XBLAD 3.5\ guide catheter was inserted over the wire 10:07:14 CHOICE PT Extra Support 182cm wire ([id number]) opened to sterile field. 10:07:19 INFLATOR Merit BasixCompak (MY7869) opened to sterile field. 10:07:32 Elmer Yurok Eagleye IVUS Catheter (53637K) opened to sterile field. 10:08:21 CHOICE ES 182 wire advanced. 10:08:51 Heparin Bolus 4000 units I.V. was administered by John Rowland RN; for anticoagulation; verified with dr greenwood 10:08:56 Wire advanced across lesion. 10:09:03 IVUS catheter advanced over wire. 10:09:21 IVUS PASS TO LMCA AND LAD LESION PERFORMED 10:09:25 IVUS catheter removed over wire. 10:13:33 Place stent Inflation Number: 1 A MICHAEL RX 2.5 x 15 stent ([id number]) was prepped and advanced across the Prox LAD. The stent was deployed at 17 ALAINA for 0:10 (min:sec). 10:13:47 Stent catheter was removed intact over wire. 10:15:04 Place stent Inflation Number: 1 A MICHAEL RX 3.5 x 12 stent ([id number]) was prepped and advanced across the LMCA. The stent was deployed at 17 ALAINA for 0:10 (min:sec). 10:15:11 Stent catheter was removed intact over wire. 10:15:29 Stent catheter was removed intact over wire. 10:15:30 Wire removed. 10:15:30 Guide catheter removed. 10:16:11 Procedure ended.(Physican Out) 10:16:40 TR BAND Standard ([id number]) opened to sterile field. 10:16:50 Sheath removed intact; hemostasis achieved with Mechanical Compression to the Right Radial artery. 10:16:56 Fluoroscopy time 04.90 minutes. 10:17:00 Fluoroscopy dose: 767 mGy 10:17:00 Flurop Dose total: 767 10:17:07 Contrast amount:Isovue 300 89ml. 10:17:10 TR band inflated with 10cc of air. 10:17:13 Post-procedure physical assessment completed. ASA score P 2 - A patient with mild systemic disease as per Bong Greenwood MD. 10:17:16 Post procedure rhythm: sinus bradycardia 10:17:18 Estimated blood loss: 10 ml 10:17:19 Post procedure instruction explained to patient.Patient verbalizes understanding. 10:17:20 Patient needs reinforcement of post procedure teaching. 10:18:43 Procedure type changed to Cath procedure, Diagnostic procedure, LHC, LHC w/Coronaries, FFR/IVUS, Intra-Coronary IVUS Initial, Intra-Coronary IVUS Additional, Sedation Charges, Moderate Sedation up to 15 minutes, PCI procedure, Coronary Stent, Coronary Stent Initial x2 10:19:20 Procedure and supply charges have been captured, reviewed, submitted and are correct. 10:19:20 Vital chart was stopped 10:19:22 Procedure Complication : No complications 10:19:24 See physician's report for complete and final results. 10:19:25 Report given to Pre/Post Procedure Room. 10:19:28 Patient transfered to Pre/Post Procedure Room with Bed. 10:19:31 Procedure ended. 10:19:31 Full Disclosure recording stopped 10:19:34 End room use (Document Last) Intervention Summary Intervention Notes Time ActionType Lesion and Equipment Used Action# Pressure Duration Attributes 10:13:33 Place stent Prox LAD MICHAEL RX 2.5 x 1 17 00:10 15 stent ([id number]) 10:15:04 Place stent LMCA MICHAEL RX 3.5 x 1 17 00:10 12 stent ([id number]) Device Usage Item Name Manufacture Quantity Catalog Number Hospital Part Current M inimal Lot# / Charge Number Stock Stock Serial# Code ACIST Syringe Acist 1 71110 639990 651519 725903 2 0 (81316) Medical Systems Inc Bag Decanter Microtek 1 2002S 383736 18041 026637 5 (2002S) Medical Inc. ACIST Hand Acist 1 77918 087316 511209 357104 5 Control Medical (94978) Systems Inc ACIST Manifold Acist 1 50188 319971 220689 500902 5 (53572) Medical Systems Inc Tegaderm 4 x 4 3M 1 1626W 881728 804966 464700 5 (1626W) Medline Cath Medline 1 [id number] 559530 38597 710353 5 Pack ([id number]) DIAGNOSTIC St Prasanth 1 075318 580277 807534 311388 3 0 WIRE .035 260cm J wire (222706) MBrace Wrist Advanced 1 140-0250-00 964487 16796 872568 5 Support Vascular ([id number]) Dynamics SHEATH 6FR Terumo 1 [id number] 377025 400965 652823 5 Slender (80-1060) DIAGNOSTIC Terumo 1 40-1343 282586 159294 173385 5 Lizella 110cm 5 Fr catheter (369799) GUIDE 6FR Cardinal 1 [id number] 120689 536540 365106 1 0 XBLAD 3.5 Health catheter (32623025) CHOICE PT [place] 1 [id number] 848323 083624 123928 5 Extra Support Scientific 182cm wire ([id number]) INFLATOR Merit Merit 1 LA2358 227683 061339 266692 1 5 Day [facility] Medical (QS8228) Elmer Elmer 1 [id number] 432677 222086 616074 8 [place] Eagleye IVUS Catheter (94273O) MICHAEL RX 2.5 x Medtronic 1 [id number] 730752 1900294 796055 5 [id number] 15 stent ([id number]) MICHAEL RX 3.5 x Medtronic 1 [id number] 742754 9385028 267408 5 [id number] 12 stent ([id number]) TR BAND Terumo 1 [id number] 819875 282872 414829 4 0 Standard ([id number]) Signature Audit [place] Stage Time Signature Unsigned Intra-Procedure 05/04/2018 Kathi Chapa 10:20:36 AM RT(R) Signatures Monitor : Kathi Chapa Signature : RT Date : Time : [id number] [place] [address]
[2018-05-04] MEDS ORDERED: BREO ELLIPTA 11 EACH INH (08:17)
[2018-05-04] MEDS ORDERED: NITROSTAT0.4 MG SL (08:19)
[2018-05-04] MEDS ORDERED: VOLTAREN75 MG PO (08:20)
[2018-05-04] MEDS ORDERED: VITAMIN D2000 UNIT PO (08:22)
[2018-05-04 08:28] VITALS: BP 129/59; Ht 172.7 cm; Wt 96.8 kg
[2018-05-04 08:57] LABS: ANION GAP 15.7 mmol/L (8-16); CARBON DIOXIDE 25.7 mmol/L (21.0-32.0); CREATININE - SERUM 1.1 mg/dL (0.6-1.3); POTASSIUM - SERUM 4.4 mmol/L (3.5-5.1)
[2018-05-04 08:58] LABS: BASOPHILS 0.8 % (0-2); EOSINOPHILS 5.4 % (0-7); HEMATOCRIT 41.3 % (36.0-48.0); HEMOGLOBIN 14.3 g/dL (12-16); IMMATURE GRANULOCYTES 0.3 % (0-5); LYMPHOCYTES 22.5 % (15-50); MCH 32.4 pg (26.0-34.0); MCHC 34.6 g/dL (31.0-37.0); MCV 93.4 fL (80.0-100.0); MONOCYTES 11.1 % (2-11); NEUTROPHILS 59.9 % (40-80); PLATELET COUNT 214 10x3/uL (130-400); RBC 4.42 10x6/uL (4.00-5.40); RDW 13.7 % (11.5-14.5); WBC 6.1 10x3/uL (4.8-10.8)
--- NOTE | 2018-05-04 10:45 | NUR ---
2L NC, NO RESP DISTRESS. RIGHT WRIST TR BAND CDI, NO BLEEDING OR HEMATOMA NOTED. NO C/O PAIN OR NAUSEA. VSS. FAMILY AT BEDSIDE, CALL LIGHT WITHIN REACH.
--- NOTE | 2018-05-04 11:15 | NUR ---
RESTING QUIETLY WITH EYES CLOSED. RIGHT WRIST TR BAND CDI, NO BLEEDING OR HEMATOMA NOTED. NO C/O AT THIS TIME. VSS. WILL CONTINUE TO MONITOR.
--- NOTE | 2018-05-04 11:30 | NUR ---
CONTINUES TO REST COMFORTABLY WITH NO C/O. RIGHT WRIST TR BAND CDI, NO BLEEDING OR HEMATOMA NOTED. DENIES ANY NEEDS. VSS. CALL LIGHT WITHIN REACH.
--- NOTE | 2018-05-04 12:30 | NUR ---
SIPPING ON DRINK AND EATING SANDWICH WITH NO C/O NAUSEA. RIGHT WRIST TR BAND CDI, NO BLEEDING OR HEMATOMA NOTED. NO OTHER NEEDS VOICED AT THIS TIME. VSS. CALL LIGHT WITHIN REACH.
--- NOTE | 2018-05-04 13:40 | NUR ---
3CC OF AIR REMOVED FROM TR BAND WITH NO BLEEDING NOTED. VSS. WILL CONTINUE TO MONITOR.
--- NOTE | 2018-05-04 13:55 | NUR ---
3CC OF AIR REMOVED FROM TR BAND WITH FREIGHT SHIPPING AGENT BLEEDING NOTED.
--- NOTE | 2018-05-04 14:10 | NUR ---
LEFT PIV D/C'D WITH CATHETER INTACT, BAND AID TO SITE. UP TO BEDSIDE TO GET DRESSED.
--- NOTE | 2018-05-04 14:18 | NUR ---
REMAINING AIR REMOVED FROM TR BAND WITH NO BLEEDING NOTED. DRESSING PLACED TO SITE. DISCHARGE INSTRUCTIONS GIVEN ALONG WITH PLAVIX PRESCRIPTION. VERBALIZED UNDERSTANDING.
--- NOTE | 2018-05-04 14:30 | NUR ---
TAKEN OUT VIA WHEELCHAIR BY CATH CRIME ANALYST. LEFT FACILITY WITH FAMILY AND ALL PERSONAL BELONGINGS.
== END 2018-05-04 14:30 | disposition home or self-care (01) ==
LOC: D.CATH 07:55
PROVIDERS: ATTEND Internal Medicine Interventional Cardiology
DX: I25.119 Atherosclerotic heart disease of native coronary artery with unspecified angina pectoris (principal); Z01.812 Encounter for preprocedural laboratory examination
CPT/HCPCS: 92978; 92979; 93458; C9600 ×2

== ENCOUNTER → 2018-11-05 11:34 | Outpatient (CLI) | payer OTHER ==
[2018-05-04 08:28] VITALS: BMI 32.4
[~2018-11-05 11:34] MED LIST changes: +BREO ELLIPTA 11 EACH INH; +NITROSTAT0.4 MG SL; +VITAMIN D2000 UNIT PO; +VOLTAREN75 MG PO
== END | disposition home or self-care (01) ==
LOC: D.CT 11:34
PROVIDERS: ATTEND Internal Medicine Interventional Cardiology
DX: I70.213 Atherosclerosis of native arteries of extremities with intermittent claudication, bilateral legs (principal)

== ENCOUNTER 2018-12-13 12:02 | Emergency (ER) | payer OTHER ==
[~2018-12-13] VITALS: Ht 172.7 cm; Wt 93.6 kg
[2018-12-13 12:03] VITALS: Ht 172.7 cm; Wt 93.6 kg
[2018-12-13] MEDS ORDERED: ULTRAM50 MG PO (13:44)
[2018-12-13] MEDS ORDERED: KEFLEX500 MG PO (13:45)
[2018-12-13 15:24] VITALS: BP 160/79
== END 2018-12-13 15:24 | disposition home or self-care (01) ==
LOC: D.ER 12:02
DX: S01.01XA Laceration without foreign body of scalp, initial encounter (principal); W10.9XXA Fall (on) (from) unspecified stairs and steps, initial encounter; S32.009A Unspecified fracture of unspecified lumbar vertebra, initial encounter for closed fracture; S16.1XXA Strain of muscle, fascia and tendon at neck level, initial encounter; M54.5 Low back pain; J44.9 Chronic obstructive pulmonary disease, unspecified